=== PATIENT | male | born 1945 | race Caucasian/White ===

== ENCOUNTER 2018-09-05 18:11 | Observation (INO) ==
[2018-09-05] MEDS ORDERED: Pantoprazole Inj 40 MG Vial IV.PUSH ONE (19:18)
--- NOTE | 2018-09-05 19:25 | ED ---
HPI General Chief complaint: Nausea/Vomiting/Diarrhea Stated complaint: vomitting Time Seen by Provider: 09/05/18 19:06 Source: patient and family Mode of arrival: ambulatory Limitations: no limitations History of Present Illness HPI Narrative: The patient is a 72-year-old male with past medical history significant for COPD still smoking as well as throat cancer status post removal of all his teeth in 2002 presented with complaint of nausea and vomiting. Stated that he drove from [place] on Wednesday and since then he has been having low back pain in his lumbar spine and nausea and then today he had a total of 5 episodes of emesis of what was described as brownish material. No coffee- ground emesis. There was no bright red blood emesis or bilious emesis. Patient denies any abdominal pain. He lives in [place] and is visiting family for the holidays. No fever or chills no diarrhea. On arrival he is heart rate was 119 bpm and a respiratory rate of 25 breaths/min. Denies any respiratory distress no cough. No URI symptoms MD complaint: Reports nausea and vomiting; Denies diarrhea and abdominal pain Onset (ago): day(s) (3) Description of Vomiting: other (brown lquid) Description of Diarrhea: none Associated Abdominal Pain: No Severity: mild Associated symptoms: Reports loss of appetite (chronic), nausea/vomiting and weakness (generalized); Denies malaise, dysuria, shortness of breath, altered mental status, fatigue and palpitation Related Data Home Medications Medication Instructions Recorded Confirmed budesonide-formoterol [Symbicort] 2 puff INHALATION Q12H 09/05/18 09/05/18 Allergies Allergy/AdvReac Type Severity Reaction Status Date / Time No Known Allergies Allergy Verified 09/05/18 18:59 Review of Systems ROS: all other systems reviewed are negative [facility] Medical History Medical History COPD (chronic obstructive pulmonary disease) (Acute) History of lung cancer (Acute) History of mouth cancer (Acute) Peripheral vascular disease (Acute) Surgical History Surgical History No history of previous surgery (Acute) Family History Family History Other Coronary artery disease Social History Social History Second Hand Smoke Exposure: No Smoking Status: Never smoker How Often Do You Have a Drink Containing Alcohol: Never Recent Travel in [facility] within the Last 8 Weeks: Yes Recent Out of Country Travel within the Last 8 Weeks: No Immunization History Tetanus Immunization: Unsure Exam Narrative Exam Narrative: GENERAL: Alert and oriented in no distress. Cachectic with bitemporal wasting. SKIN: Focused skin assessment warm/dry. Dry skin turgor. HEAD: Atraumatic. Normocephalic. EYES: Pupils equal and round. No scleral icterus. No injection or drainage. ENT: No nasal bleeding or discharge. Mucous membranes pink and moist. NECK: Trachea midline. No JVD. CARDIOVASCULAR: Tachycardia with regular rhythm. No murmur appreciated. RESPIRATORY: No accessory muscle use. Clear to auscultation. Breath sounds equal bilaterally. GASTROINTESTINAL: Abdomen soft, non-tender, nondistended. Hepatic and splenic margins not palpable. No pulsatile abdominal mass noted. MUSCULOSKELETAL: No obvious deformities. No clubbing. No cyanosis. No edema. NEUROLOGICAL: Awake and alert. No obvious cranial nerve deficits. Motor grossly within normal limits. Normal speech. PSYCHIATRIC: Appropriate mood and affect; insight and judgment normal. GI Rectal Exam: normal sphincter tone, prostate normal, heme positive stool and hemorrhoids (external non bleeding non thrombosed) Course Initial Documented Vital Signs Temperature 97.3 F L 09/05/18 18:43 Pulse Rate 138 H 09/05/18 18:43 Respiratory Rate 27 H 09/05/18 18:43 Blood Pressure 106/72 09/05/18 18:43 Pulse Oximetry 98 09/05/18 18:43 Last Documented Vital Signs Temperature 97.3 F L 09/05/18 18:43 Pulse Rate 106 H 09/06/18 01:00 Respiratory Rate 19 09/06/18 01:00 Blood Pressure 114/66 09/06/18 01:00 Pulse Oximetry 98 09/06/18 01:00 Medical Decision Making [facility] Narrative Medical decision making narrative: Patient with leukocytosis of 12.9. No lactic acidosis was noted. Guaiac was positive. Presumptive upper GI bleed with hematemesis. Protonix given IV. Was also covered with Rocephin and Zithromax for bronchitis with his persistent cough and sputum production. He has been having posttussive emesis. AK I also noted with dehydration for which he was given fluids. CT abdomen and pelvis as well as chest revealed lung CA with lesions in liver and findings worisome for esophageal cancer Medical Screen Exam Complete: Yes Emergency Medical Condition: Yes Lab Data Lab results reviewed: Yes I reviewed the patient's lab results. Result diagrams: 09/05/18 19:32 09/05/18 19:32 Lab Results 09/05/18 09/05/18 09/05/18 Range/Units 19:32 19:32 19:32 WBC 12.9 H (4.0-11.0) th/mm3 RBC 4.69 (4.50-5.90) mil/mm3 Hgb 13.8 (13.0-17.0) gm/dL Hct 43.1 (39.0-51.0) % MCV 91.8 (80.0-100.0) fL MCH 29.3 (27.0-34.0) pg MCHC 32.0 (32.0-36.0) % RDW 15.0 (11.6-17.2) % Plt Count 446 (150-450) th/mm3 MPV 8.3 (7.0-11.0) fL Neut % (Auto) 83.6 H (16.0-70.0) % Lymph % (Auto) 9.9 (9.0-44.0) % Marshall % (Auto) 6.1 (0.0-8.0) % Eos % (Auto) 0.0 (0.0-4.0) % Baso % (Auto) 0.4 (0.0-2.0) % Neut # (Auto) 10.8 H (1.8-7.7) th/mm3 Lymph # (Auto) 1.3 (1.0-4.8) th/mm3 Marshall # (Auto) 0.8 (0.0-0.9) th/mm3 Eos # (Auto) 0.0 (0.0-0.4) th/mm3 Baso # (Auto) 0.0 (0.0-0.2) th/mm3 WBC Differential . Differential Comment Auto diff final PT 10.7 (9.8-11.6) sec INR 1.1 Ratio APTT 28.0 (23.4-31.7) sec Sodium 141 (136-145) meq/L Potassium 4.8 (3.5-5.1) meq/L Chloride 108 H (98-107) meq/L Carbon Dioxide 16.9 L (21.0-32.0) meq/L Anion Gap 16 H (5-15) meq/L BUN 40 H (7-18) mg/dL Creatinine 1.60 H (0.60-1.30) mg/dL Estimated GFR 43 L (>89) mL/min Random Glucose 142 H (74-106) mg/dL Lactic Acid (0.4-2.0) mmol/L Calcium 9.2 (8.5-10.1) mg/dL Calcium Adj for Albumin Magnesium 2.1 (1.5-2.5) mg/dL Total Bilirubin 0.4 (0.2-1.0) mg/dL AST 16 (15-37) U/L ALT 13 (12-78) U/L Alkaline Phosphatase 89 (45-117) U/L Total Creatine Kinase 54 (39-308) U/L Troponin I Less than 0.02 L (0.02-0.05) ng/mL Total Protein 8.3 H (6.4-8.2) g/dL Albumin 3.5 (3.4-5.0) g/dL Lipase 81 (73-393) U/L Urine Color (Yellw/Straw) Urine Clarity (Clear) Urine pH (5.0-8.5) Ur Specific [place] (1.002-1.035) Urine Protein (Neg-Trace) mg/dL Urine Glucose (UA) (Negative) mg/dL Urine Ketones (Negative) mg/dL Urine Occult Blood (Negative) Urine Nitrate (Negative) Urine Bilirubin (Negative) Urine Urobilinogen (Less than 2) mg/dL Ur Leukocyte Esterase (Negative) Urine RBC (0-3) /hpf Urine WBC (0-5) /hpf Hyaline Casts (0-3) /lpf Urine Mucus (Occasional) /lpf Micro UA Comment Ur Microscopic Review Urine Culture Comments 09/05/18 09/05/18 09/05/18 Range/Units 19:32 19:32 22:09 WBC (4.0-11.0) th/mm3 RBC (4.50-5.90) mil/mm3 Hgb (13.0-17.0) gm/dL Hct (39.0-51.0) % MCV (80.0-100.0) fL MCH (27.0-34.0) pg MCHC (32.0-36.0) % RDW (11.6-17.2) % Plt Count (150-450) th/mm3 MPV (7.0-11.0) fL Neut % (Auto) (16.0-70.0) % Lymph % (Auto) (9.0-44.0) % Marshall % (Auto) (0.0-8.0) % Eos % (Auto) (0.0-4.0) % Baso % (Auto) (0.0-2.0) % Neut # (Auto) (1.8-7.7) th/mm3 Lymph # (Auto) (1.0-4.8) th/mm3 Marshall # (Auto) (0.0-0.9) th/mm3 Eos # (Auto) (0.0-0.4) th/mm3 Baso # (Auto) (0.0-0.2) th/mm3 WBC Differential Differential Comment PT (9.8-11.6) sec INR Ratio APTT (23.4-31.7) sec Sodium Cancelled (136-145) meq/L Potassium Cancelled (3.5-5.1) meq/L Chloride Cancelled (98-107) meq/L Carbon Dioxide Cancelled (21.0-32.0) meq/L Anion Gap Cancelled (5-15) meq/L BUN Cancelled (7-18) mg/dL Creatinine Cancelled (0.60-1.30) mg/dL Estimated GFR Cancelled (>89) mL/min Random Glucose Cancelled (74-106) mg/dL Lactic Acid 1.9 (0.4-2.0) mmol/L Calcium Cancelled (8.5-10.1) mg/dL Calcium Adj for Albumin Cancelled Magnesium Cancelled (1.5-2.5) mg/dL Total Bilirubin Cancelled (0.2-1.0) mg/dL AST Cancelled (15-37) U/L ALT Cancelled (12-78) U/L Alkaline Phosphatase Cancelled (45-117) U/L Total Creatine Kinase (39-308) U/L Troponin I (0.02-0.05) ng/mL Total Protein Cancelled (6.4-8.2) g/dL Albumin Cancelled (3.4-5.0) g/dL Lipase (73-393) U/L Urine Color Yellow (Yellw/Straw) Urine Clarity Clear (Clear) Urine pH 5.0 (5.0-8.5) Ur Specific [place] 1.030 (1.002-1.035) Urine Protein Negative (Neg-Trace) mg/dL Urine Glucose (UA) Negative (Negative) mg/dL Urine Ketones 80 or greater H (Negative) mg/dL Urine Occult Blood Small H (Negative) Urine Nitrate Negative (Negative) Urine Bilirubin Negative (Negative) Urine Urobilinogen Less than 2 (Less than 2) mg/dL Ur Leukocyte Esterase Negative (Negative) Urine RBC Less than 1 (0-3) /hpf Urine WBC 1 (0-5) /hpf Hyaline Casts 14 (0-3) /lpf Urine Mucus Few H (Occasional) /lpf Micro UA Comment Culture not ind Ur Microscopic Review Not Reportable Urine Culture Comments Culture not ind Imaging Data Radiologist's impression: Abdomen/Pelvis CT 09/05/18 19:19 CONCLUSION: 1. Nodule in the right lower lobe measuring 1.8 cm. 2. Extensive wall thickening of the distal esophagus with small paraesophageal lymph nodes. Neoplastic etiology is suspected and endoscopy/biopsy recommended. 3. Nonspecific subcentimeter hepatic low-density, 4. Nonspecific rectal wall thickening. 5. Gallbladder distention urinary bladder. Chest X-Ray 09/05/18 19:19 CONCLUSION: Hyperinflation without infiltrate. Chest CTA 09/05/18 19:46 CONCLUSION: 1. Moderate emphysematous changes with 2 lung nodules, largest right lung base at 2.1 cm undoubtably carcinoma. Smaller nodule upper lobe is nonspecific. 2. No mediastinal adenopathy 3. No central pulmonary emboli. Gallbladder Ultrasound 09/05/18 22:16 CONCLUSION: 1. Unremarkable right upper quadrant ultrasound. ECG Data Attestation: I personally reviewed and interpreted this ECG as follows: Interpretation: Sinus tachycardia 118 bpm NM interval 166 ms. QTc 380 ms. Normal axis. Right atrial enlargement. Left atrial enlargement. Nonspecific ST-T wave abnormalities. No signs of acute ischemia. Discharge Plan Discharge Disposition Patient Disposition: 30 Still Patient Discharge Condition Condition: Good Discharge Details Diagnosis: Hematemesis, Lung cancer, CARISA (acute kidney injury) Physicians Team ED Provider: Dash Gallegos Primary Care Provider: Primary Care Physici,Brittaney Attending Provider: Alexus Sifuentes Discharge Interventions Interventions: Vital Signs Last Done: 09/06/18 01:00 Status ED Status: Admitted Observation Patient
[2018-09-05] MEDS ORDERED: Sod Chloride 0.9% Inj 800 ML IV.SIG SCH (19:30)
[2018-09-05] MEDS ORDERED: Sod Chloride 0.9% Inj 1,000 ML IV.SIG SCH (19:30)
[2018-09-05 19:52] LABS: Baso % (Auto) 0.4 % (0.0-2.0); Hematocrit 43.1 % (39.0-51.0); Hemoglobin 13.8 gm/dL (13.0-17.0); Lymph # (Auto) 1.3 th/mm3 (1.0-4.8); Lymph % (Auto) 9.9 % (9.0-44.0); Mean Corpuscular Hemoglobin 29.3 pg (27.0-34.0); Mean Corpuscular Volume 91.8 fL (80.0-100.0); Mean Platelet Volume 8.3 fL (7.0-11.0); Mono # (Auto) 0.8 th/mm3 (0.0-0.9); Mono % (Auto) 6.1 % (0.0-8.0); Neut # (Auto) 10.8 th/mm3 (1.8-7.7); Neut % (Auto) 83.6 % (16.0-70.0); Platelet Count 446 th/mm3 (150-450); Red Blood Count 4.69 mil/mm3 (4.50-5.90); White Blood Count 12.9 th/mm3 (4.0-11.0)
--- NOTE | 2018-09-05 19:56 | XR ---
EXAM DATE: 09/05/2018 7:43 PM EST AGE/SEX: 72 years / Male INDICATIONS: Cough. CLINICAL DATA: This is the patient's initial encounter. Patient reports that signs and symptoms have been present for 1 day and indicates a pain score of 0/10. MEDICAL/SURGICAL HISTORY: Non-responsive. Non-responsive. COMPARISON: No prior exams available for comparison. FINDINGS: A single AP view of the chest demonstrates the lungs to be hyperinflated without evidence of mass, in filtrate or effusion. The cardiomediastinal contours are unremarkable. Old left-sided rib fractures. CONCLUSION: Hyperinflation without infiltrate. Electronically signed by: Troy Watters MD 09/05/2018 7:55 PM EST
[2018-09-05 20:08] LABS: INR 1.1 Ratio
[2018-09-05 20:13] LABS: Prothrombin Time 10.7 sec (9.8-11.6)
[2018-09-05 20:24] LABS: Albumin 3.5 g/dL (3.4-5.0); Anion Gap 16 meq/L (5-15); Aspartate Aminotransferase 16 U/L (15-37); Blood Urea Nitrogen 40 mg/dL (7-18); Calcium 9.2 mg/dL (8.5-10.1); Carbon Dioxide 16.9 meq/L (21.0-32.0); Chloride 108 meq/L (98-107); Glomerular Filtration Rate 43 mL/min (>89); Glucose,Random 142 mg/dL (74-106); Lipase 81 U/L (73-393); Magnesium 2.1 mg/dL (1.5-2.5); Potassium 4.8 meq/L (3.5-5.1); Sodium 141 meq/L (136-145)
[2018-09-05 20:30] LABS: Alanine Aminotransferase 13 U/L (12-78); Alkaline Phosphatase 89 U/L (45-117); Total Protein 8.3 g/dL (6.4-8.2)
[2018-09-05 20:32] LABS: Creatine Kinase 54 U/L (39-308)
--- NOTE | 2018-09-05 21:31 | CT ---
EXAM DATE: 09/05/2018 9:19 PM EST AGE/SEX: 72 years / Male INDICATIONS: Shortness of breath CLINICAL DATA: This is the patient's initial encounter. Patient reports that signs and symptoms have been present for 1 day and indicates a pain score of 0/10. MEDICAL/SURGICAL HISTORY: Chronic obstructive pulmonary disease. Carcinoma, lung. None. RADIATION DOSE: 3.9 CTDI (mGy) COMPARISON: No prior exams available for comparison. TECHNIQUE: Volumetric scanning was performed using a multi-row detector CT scanner during bolus infu princess of 76 ml Omnipaque 350 (iohexol) nonionic water-soluble contrast as a cumulative dose for multi ple exams. The data was post processed with a variety of visualization algorithms including full volu me maximum intensity projection and sliding thin slab reformation. Using automated exposure control a nd adjustment of the mA and/or kV according to patient size, radiation dose was kept as low as reason ably achievable to obtain optimal diagnostic quality images. DICOM format image data is available el ectronically for review and comparison. FINDINGS: Lungs: Moderate emphysematous changes with small 8 mm spiculated nodule right upper lobe. 2.1 cm spic ulated nodule right lung base consistent with a primary neoplasm of the lung. Mediastinum: No axillary or mediastinal adenopathy. No central pulmonary emboli. Upper abdominal contents unremarkable CONCLUSION: 1. Moderate emphysematous changes with 2 lung nodules, largest right lung base at 2.1 cm undoubtably carcinoma. Smaller nodule upper lobe is nonspecific. 2. No mediastinal adenopathy 3. No central pulmonary emboli. Electronically signed by: Lester Potter MD 09/05/2018 9:30 PM EST
--- NOTE | 2018-09-05 21:36 | CT ---
EXAM DATE: 09/05/2018 9:25 PM EST AGE/SEX: 72 years / Male INDICATIONS: Diffuse abdomen pain today with nausea and vomiting. CLINICAL DATA: This is the patient's initial encounter. Patient reports that signs and symptoms have been present for 1 day and indicates a pain score of 5/10. MEDICAL/SURGICAL HISTORY: Carcinoma, lung. Chronic obstructive pulmonary disease. None. ORAL CONTRAST: No oral contrast ingested. RADIATION DOSE: 6.93 CTDI (mGy) COMPARISON: No prior exams available for comparison. TECHNIQUE: Multiple contiguous axial images were obtained through the abdomen and pelvis following b olus infusion of 76 ml Omnipaque 350 (iohexol) nonionic water-soluble contrast as a cumulative dose for multiple exams. No oral contrast ingested. Using automated exposure control and adjustment of t he mA and/or kV according to patient size, radiation dose was kept as low as reasonably achievable to obtain optimal diagnostic quality images. DICOM format image data is available electronically for r eview and comparison. FINDINGS: Lower Lungs: Nodule in the right lower lobe measuring 1.8 x 1.6 cm. Extensive wall thickening of the distal esophagus. Small paraesophageal lymph nodes. Liver: The liver has a homogeneous density without space-occupying lesion. There is no dilation of th e biliary tree. Nonspecific low-density in the right central lobe measures 5 to 6 mm Spleen: Homogeneous density without enlargement. Pancreas: Unremarkable without mass or calcification. Kidneys: Normal in size and shape. No evidence of mass or hydronephrosis. Adrenal Glands: Unremarkable. Aorta: Atherosclerotic changes without aneurysmal dilation. Bowel/Mesentery: There is some rectal wall thickening. Abdominal Wall: Intact. Retroperitoneum: No evidence of adenopathy in the retrocrural, para-aortic, or deep pelvic regions. Bladder: Contours are smooth. Mildly distended. Reproductive Organs: No abnormal masses or calcifications seen. Inguinal: The inguinal region is unremarkable without evidence of adenopathy. Bony Structures: Degenerative changes are seen. Mild loss of height of T11 and T12 and moderate loss of height of L1. CONCLUSION: 1. Nodule in the right lower lobe measuring 1.8 cm. 2. Extensive wall thickening of the distal esophagus with small paraesophageal lymph nodes. Neoplast ic etiology is suspected and endoscopy/biopsy recommended. 3. Nonspecific subcentimeter hepatic low-density, 4. Nonspecific rectal wall thickening. 5. Gallbladder distention urinary bladder. Electronically signed by: Troy Watters MD 09/05/2018 9:35 PM EST
[2018-09-05 22:26] LABS: Bilirubin,Urine Negative (Negative); Clarity,Urine Clear (Clear); Color,Urine Yellow (Yellw/Straw); Glucose,Urine (UA) Negative (Negative); Hyaline Casts,Urine 14 /lpf (0-3); Leukocyte Esterase,Urine Negative (Negative); Mucus,Urine Few /lpf (Occasional); Nitrite,Urine Negative (Negative)
[2018-09-05] MEDS ORDERED: Azithromycin Inj 500 MG in Sodium Chlor 0.9% Inj 250 ML IV.SIG ONE (23:04)
--- NOTE | 2018-09-05 23:26 | US ---
EXAM DATE: 09/05/2018 11:09 PM EST AGE/SEX: 72 years / Male INDICATIONS: Right upper quadrant pain. CLINICAL DATA: This is the patient's initial encounter. Patient reports that signs and symptoms have been present for 1 day and indicates a pain score of 4/10. MEDICAL/SURGICAL HISTORY: Chronic obstructive pulmonary disease. None. COMPARISON: No prior exams available for comparison. MEASUREMENTS: Liver:__ 13.2 cm. Common Bile Duct:__ 4mm. FINDINGS: Liver: Normal echotexture without focal lesion or ductal dilatation. Portal Vein: Hepatopedal flow seen in portal vein. Common Duct: No intraluminal mass or stone visualized. Gallbladder: Demonstrates no wall thickening or pericholecystic fluid. No stones visualized. Pancreas: Not well visualized. Right Kidney: Normal echotexture and cortical thickness. No mass or hydronephrosis. Other: None. CONCLUSION: 1. Unremarkable right upper quadrant ultrasound. Electronically signed by: Alfredo Aviles MD 09/05/2018 11:25 PM EST
[2018-09-06] MEDS ORDERED: Acetaminophen 325 MG Tablet PO PRN (03:19)
[2018-09-06] MEDS ORDERED: Bisacodyl 10 MG Supp RECTAL PRN (03:19)
--- NOTE | 2018-09-06 03:35 | P.HP ---
History of Present Illness Service: [facility] Primary Care Physician: No Primary Care Physician History of Present Illness: 72-year-old male with a past medical history significant for "mouth cancer", COPD and peripheral vascular disease presents to the emergency department for evaluation of nausea/vomiting and anorexia times 2 days. The patient reports he did have dark emesis but he also drank coffee prior to throwing up so he is unsure if there was blood in his M just was throwing up his coffee. The patient is visiting from [place]. 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 He states at that time he lost a significant amount of weight but his weight has been stable since 2004. He also reports being diagnosed with lung cancer in 2004 however states that he did not seek treatment for this because he felt it was a misdiagnosis. He reports that he currently has a utility aide and a doctor for his leg. He does not have a primary care physician. He states his last EGD was done in 2011 and he believes that it was normal. He was Hemoccult positive in the emergency department. CT abdomen/ pelvis concerning for esophageal wall thickening with suspected neoplastic etiology. CT of the chest showed 2 lung nodules with the largest at the right lung base "undoubtably carcinoma." The patient denies any chest pain or shortness of breath. No diarrhea. No fever/chills. No focal neurologic deficits. Inpatient Certification: I certify that the inpatient services were ordered in accordance with Medicare regulations governing the order. This includes certification that hospital inpatient services are reasonable and necessary and in the case of services not specified as inpatient-only under 42 CFR 419.22(n), that they are appropriately provided as inpatient services in accordance to with the 2-midnight benchmark under 43 CFR 412.3(e) Review of Systems All other systems reviewed negative except as stated in HPI PMFSH - History History Provided By: Patient - Medical History Medical History: Medical History (Last Updated 09/06/18 @ 03:26 by Alexus Sifuentes MD) COPD (chronic obstructive pulmonary disease) History of lung cancer History of mouth cancer Peripheral vascular disease - Surgical History Surgical History: Surgical History (Last Updated 09/06/18 @ 03:26 by Alexus Sifuentes MD) No history of previous surgery - Family History Family History: Family History (Last Updated 09/06/18 @ 03:26 by Alexus Sifuentes MD) Other Coronary artery disease - Tobacco History Second Hand Smoke Exposure: No Smoking Status: Never smoker - Alcohol History How Often Do You Have a Drink Containing Alcohol: Never - Travel History Recent Travel in the [place] Within the Last 8 Weeks: Yes Recent Travel Out of the Country Within the Last 8 Weeks: No - Immunization History Tetanus Immunization: Unsure Medications and Allergies Active Medications: Active Medications Acetaminophen (Tylenol) 650 mg PO Q4H PRN PRN Reason: Temp > 100.4 Albuterol (Duoneb Neb (Prn)) 1 ampul NEB Q4HR NEB PRN PRN Reason: SOB/Wheezing Sodium Chloride (Ns Inj) 1,000 mls @ 0 mls/hr IV.SIG .Q0M TIFFANIE Last Infusion: 09/05/18 21:02 Dose: Infused Sodium Chloride (Ns Inj) 800 mls @ 0 mls/hr IV.SIG .Q0M TIFFANIE Last Infusion: 09/05/18 21:02 Dose: Infused Allergies Allergy/AdvReac Type Severity Reaction Status Date / Time No Known Allergies Allergy Verified 09/05/18 18:59 Home Medications Medication Instructions Recorded Confirmed Type budesonide-formoterol [Symbicort] 2 puff INHALATION Q12H 09/05/18 09/05/18 History Exam Vital signs: Vital Signs 09/05/18 18:43 09/05/18 18:47 09/05/18 19:19 Temperature 97.3 F L Pulse Rate 138 H 119 H 119 H Respiratory Rate 27 H 25 H Blood Pressure 106/72 Pulse Oximetry 98 97 97 09/05/18 22:20 09/06/18 01:00 Temperature Pulse Rate 107 H 106 H Respiratory Rate 21 19 Blood Pressure 129/85 114/66 Pulse Oximetry 99 98 Intake & Output 09/05/18 09/05/18 09/06/18 06:59 18:59 06:59 Intake Total 2149 Balance 2149 Weight 43.091 kg Intake: IV 2149 Azithromycin Inj 500 MG In NS 250 / 250 Inj 250 ML @ 250 mls/hr IV.SIG ONCE ONE Rx#:[id number] NS Inj 800 ML @ Wide Open IV. 1800 / 1800 SIG .Q0M TIFFANIE Rx#:[id number] Rocephin Inj 1,000 MG In NS Inj 100 / 100 100 ML @ 200 mls/hr IV.SIG ONCE ONE Rx#:[id number] Narrative: Gen.: Cachectic appearing male in no acute distress Head: Normocephalic. Atraumatic. EENT: Pupils equal round and reactive to light. Nose without drainage. Airway intact. Throat without injection. Cardiovascular: Regular rate and rhythm. No murmurs, rubs or gallops. Respiratory: Lungs clear to auscultation bilaterally. No wheezes or rhonchi. Abdomen: Soft, nontender, nondistended. No peritoneal signs. Musculoskeletal: No gross deformities. No edema. Skin: No obvious rashes or erythema. Neuro: Sensory and motor grossly intact. Cranial nerves II through XII grossly intact. Results - Labs CBC & Chem 7: 09/05/18 19:32 09/05/18 19:32 Labs: Laboratory Results - last 24 hr 09/05/18 09/05/18 09/05/18 19:32 19:32 19:32 WBC 12.9 H RBC 4.69 Hgb 13.8 Hct 43.1 MCV 91.8 MCH 29.3 MCHC 32.0 RDW 15.0 Plt Count 446 MPV 8.3 Neut % (Auto) 83.6 H Lymph % (Auto) 9.9 [place] % (Auto) 6.1 Eos % (Auto) 0.0 Baso % (Auto) 0.4 Neut # (Auto) 10.8 H Lymph # (Auto) 1.3 [place] # (Auto) 0.8 Eos # (Auto) 0.0 Baso # (Auto) 0.0 WBC Differential . Differential Comment Auto diff final PT 10.7 INR 1.1 APTT 28.0 Sodium 141 Potassium 4.8 Chloride 108 H Carbon Dioxide 16.9 L Anion Gap 16 H BUN 40 H Creatinine 1.60 H Estimated GFR 43 L Random Glucose 142 H Lactic Acid Calcium 9.2 Calcium Adj for Albumin Magnesium 2.1 Total Bilirubin 0.4 AST 16 ALT 13 Alkaline Phosphatase 89 Total Creatine Kinase 54 Troponin I Less than 0.02 L Total Protein 8.3 H Albumin 3.5 Lipase 81 Urine Color Urine Clarity Urine pH Ur Specific [place] Urine Protein Urine Glucose (UA) Urine Ketones Urine Occult Blood Urine Nitrate Urine Bilirubin Urine Urobilinogen Ur Leukocyte Esterase Urine RBC Urine WBC Hyaline Casts Urine Mucus Micro UA Comment Ur Microscopic Review Urine Culture Comments 09/05/18 09/05/18 09/05/18 19:32 19:32 22:09 WBC RBC Hgb Hct MCV MCH MCHC RDW Plt Count MPV Neut % (Auto) Lymph % (Auto) [place] % (Auto) Eos % (Auto) Baso % (Auto) Neut # (Auto) Lymph # (Auto) [place] # (Auto) Eos # (Auto) Baso # (Auto) WBC Differential Differential Comment PT INR APTT Sodium Cancelled Potassium Cancelled Chloride Cancelled Carbon Dioxide Cancelled Anion Gap Cancelled BUN Cancelled Creatinine Cancelled Estimated GFR Cancelled Random Glucose Cancelled Lactic Acid 1.9 Calcium Cancelled Calcium Adj for Albumin Cancelled Magnesium Cancelled Total Bilirubin Cancelled AST Cancelled ALT Cancelled Alkaline Phosphatase Cancelled Total Creatine Kinase Troponin I Total Protein Cancelled Albumin Cancelled Lipase Urine Color Yellow Urine Clarity Clear Urine pH 5.0 Ur Specific [place] 1.030 Urine Protein Negative Urine Glucose (UA) Negative Urine Ketones 80 or greater H Urine Occult Blood Small H Urine Nitrate Negative Urine Bilirubin Negative Urine Urobilinogen Less than 2 Ur Leukocyte Esterase Negative Urine RBC Less than 1 Urine WBC 1 Hyaline Casts 14 Urine Mucus Few H Micro UA Comment Culture not ind Ur Microscopic Review Not Reportable Urine Culture Comments Culture not ind - Imaging Impressions Abdomen/Pelvis CT 09/05/18 19:19 CONCLUSION: 1. Nodule in the right lower lobe measuring 1.8 cm. 2. Extensive wall thickening of the distal esophagus with small paraesophageal lymph nodes. Neoplastic etiology is suspected and endoscopy/biopsy recommended. 3. Nonspecific subcentimeter hepatic low-density, 4. Nonspecific rectal wall thickening. 5. Gallbladder distention urinary bladder. Chest X-Ray 09/05/18 19:19 CONCLUSION: Hyperinflation without infiltrate. Chest CTA 09/05/18 19:46 CONCLUSION: 1. Moderate emphysematous changes with 2 lung nodules, largest right lung base at 2.1 cm undoubtably carcinoma. Smaller nodule upper lobe is nonspecific. 2. No mediastinal adenopathy 3. No central pulmonary emboli. Gallbladder Ultrasound 09/05/18 22:16 CONCLUSION: 1. Unremarkable right upper quadrant ultrasound. Caprini VTE Risk Assessment Caprini VTE Risk Assessment: Moderate/High Risk (score >= 2) Caprini Risk Assessment Model: Point Value = 1 Point Value = 2 Point Value = 3 Point Value = 5 Age 41-60 Minor surgery BMI > 25 kg/m2 Swollen legs Varicose veins or History of unexplained or recurrent spontaneous Oral contraceptives or hormone replacement Sepsis (< 1 month) Serious lung disease, including pneumonia (< 1 month) Abnormal pulmonary function Acute myocardial infarction Congestive heart failure (< 1 month) History of inflammatory bowel disease Medical patient at bed rest Age 61-74 Arthroscopic surgery Major open surgery (> 45 min) Laparoscopic surgery (> 45 min) Malignancy Confined to bed (> 72 hours) Immobilizing plaster cast Central venous access Age >= 75 History of VTE Family history of VTE Factor V Leiden Prothrombin [id number] Lupus anticoagulant Anticardiolipin antibodies Elevated serum homocysteine Heparin-induced thrombocytopenia Other congenital or acquired thrombophilia Stroke (< 1 month) Elective arthroplasty Hip, pelvis, or leg fracture Acute spinal cord injury (< 1 month) Prophylaxis Regimen: Total Risk Factor Score Risk Level Prophylaxis Regimen 0-1 Low Early ambulation 2 Moderate Order ONE of the following: *Sequential Compression Device (SCD) *Heparin 5000 units SQ BID 3-4 Higher Order ONE of the following medications: *Heparin 5000 units SQ TID *Enoxaparin/Lovenox 40 mg SQ daily (WT < 150 kg, CrCl > 30 mL/min) *Enoxaparin/Lovenox 30 mg SQ daily (WT < 150 kg, CrCl > 10-29 mL/min) *Enoxaparin/Lovenox 30 mg SQ BID (WT < 150 kg, CrCl > 30 mL/min) AND/OR *Sequential Compression Device (SCD) 5 or more Highest Order ONE of the following medications: *Heparin 5000 units SQ TID (Preferred with Epidurals) *Enoxaparin/Lovenox 40 mg SQ daily (WT < 150 kg, CrCl > 30 mL/min) *Enoxaparin/Lovenox 30 mg SQ daily (WT < 150 kg, CrCl > 10-29 mL/min) *Enoxaparin/Lovenox 30 mg SQ BID (WT < 150 kg, CrCl > 30 mL/min) AND *Sequential Compression Device (SCD) Assessment and Plan - Plan Assessment/plan: 1. Nausea/vomiting/weight loss/? Esophageal neoplasm Patient Hemoccult positive in the ED Nausea/vomiting resolved CT of the abdomen/pelvis significant for extensive wall thickening of the distal esophagus with small paraesophageal lymph nodes. Neoplastic etiology is suspected and endoscopic/biopsy is recommended. Gastroenterology consulted, appreciate assistance IV Protonix 2. ? History of lung cancer/lung nodules Chest CTA significant for 2 lung nodules, largest in the right lung base at 2.1 cm undoubtably carcinoma. Patient reports a history of lung cancer in 2004 however states he felt it was a misdiagnosis and did not have it treated Patient will need oncologic workup as an outpatient 3. COPD Duo nebs Continue home Symbicort 4. Peripheral vascular disease Patient reports he is followed as an outpatient for an occlusion in 1 of the vessels of his leg He states he was prescribed medication but he has not been on it in a long time Lower extremity ultrasound pending 5. Acute kidney injury BUN/creatinine 40/1.60 Likely component of dehydration given patient's anorexia and emesis IV fluid hydration Monitor renal function FEN N.p.o. Electrolytes: Monitor and replete as needed NS at 70 cc/hour Holding pharmacologic anticoagulation for possible GI bleed and possible EGD
[2018-09-06] MEDS: Senna/Docusate Sodium 8.6/50 MG Tablet PO SCH ×2 (08:03→21:34)
[2018-09-06] MEDS: Budesonide-Formoterol 80/4.5 MCG 6.9 GM Inhaler INH SCH ×2 (08:15→21:34)
[2018-09-06] MEDS: Pantoprazole Inj 40 MG Vial IV.PUSH SCH ×2 (08:15→21:34)
--- NOTE | 2018-09-06 08:55 | US ---
EXAM DATE: 09/06/2018 8:52 AM EST AGE/SEX: 72 years / Male INDICATIONS: Thrombosis. CLINICAL DATA: This is the patient's initial encounter. Patient reports that signs and symptoms have been present for 1 day and indicates a pain score of 0/10. MEDICAL/SURGICAL HISTORY: . Chronic obstructive pulmonary disease. None. COMPARISON: No prior exams available for comparison. TECHNIQUE: Venous ultrasound of both lower extremities was performed from the inguinal ligament to t he proximal calf. Real-time, color Doppler and spectral tracing, compression and augmentation techni ques were used. FINDINGS: Right Leg: Normal compression of the deep venous system from the inguinal region to the proximal myriam f. No echogenic clot is seen. Normal response of the venous system to augmentation and respiration. Left Leg: Normal compression of the deep venous system from the inguinal region to the proximal calf . No echogenic clot is seen. Normal response of the venous system to augmentation and respiration. Other: None. CONCLUSION: The study is negative for bilateral lower extremity deep venous thrombosis. Electronically signed by: Eddie Thomson MD 09/06/2018 8:53 AM EST
[2018-09-06] MEDS: Sod Chloride 0.9% Inj 1,000 ML IV.CONT SCH ×2 (10:07→19:15)
[2018-09-06 12:56] LABS: Calcium 8.8 mg/dL (8.5-10.1); Carbon Dioxide 17.8 meq/L (21.0-32.0); Potassium 3.8 meq/L (3.5-5.1)
--- NOTE | 2018-09-06 14:36 | P.PN ---
Subjective Interval history: seen with family at bedside patient up on chair- wanting to eat here visiting from [place] further history- COPD not 02 dependent on spiriva and Ventolin MDIs has been havign difficulty swallowing solids for "years" toleating only liquids hisotry of tongue cancer S/p radiation therapy in 2004 for 7 weeks also states history of Lung cancer - but he feels it was a misdiagnosis Physical Exam Vital signs: Vital Signs 09/05/18 18:43 09/05/18 18:47 09/05/18 19:19 Temperature 97.3 F L Pulse Rate 138 H 119 H 119 H Respiratory Rate 27 H 25 H Blood Pressure 106/72 Pulse Oximetry 98 97 97 09/05/18 22:20 09/06/18 01:00 09/06/18 07:40 Temperature Pulse Rate 107 H 106 H 102 H Respiratory Rate 21 19 18 Blood Pressure 129/85 114/66 118/64 Pulse Oximetry 99 98 97 09/06/18 10:35 09/06/18 12:30 09/06/18 13:40 Temperature 97.5 F L 96.6 F L Pulse Rate 92 H 85 89 Respiratory Rate 18 22 Blood Pressure 113/55 L 115/59 L Pulse Oximetry 99 100 Intake & Output 09/05/18 09/06/18 09/06/18 18:59 06:59 18:59 Intake Total 2149 Balance 2149 Weight 43.091 kg 43.091 kg Intake: IV 2149 Azithromycin Inj 500 MG In NS 250 / 250 Inj 250 ML @ 250 mls/hr IV.SIG ONCE ONE Rx#:[id number] NS Inj 800 ML @ Wide Open IV. 1800 / 1800 SIG .Q0M [facility] Rx#:[id number] Rocephin Inj 1,000 MG In NS Inj 100 / 100 100 ML @ 200 mls/hr IV.SIG ONCE ONE Rx#:[id number] Other: Date of Last Bowel Movement 09/02/18 Weight On Admission 43.091 kg Narrative: Gen.: Cachectic appearing male in no acute distress, a x ox 3 Head: Normocephalic. Atraumatic. EENT: Pupils equal round and reactive to light. Nose without drainage. Airway intact. Throat without injection. Cardiovascular: Regular rate and rhythm. Respiratory: Lungs clear to auscultation bilaterally. No wheezes or rhonchi. Abdomen: Soft, nontender, nondistended. No peritoneal signs. Musculoskeletal: No gross deformities. No edema. Skin: No obvious rashes or erythema. Neuro: Sensory and motor grossly intact. Results - Labs CBC & Chem 7: 09/05/18 19:32 09/06/18 11:49 Laboratory Results - last 24 hr 09/05/18 09/05/18 09/05/18 19:32 19:32 19:32 WBC 12.9 H RBC 4.69 Hgb 13.8 Hct 43.1 MCV 91.8 MCH 29.3 MCHC 32.0 RDW 15.0 Plt Count 446 MPV 8.3 Neut % (Auto) 83.6 H Lymph % (Auto) 9.9 [place] % (Auto) 6.1 Eos % (Auto) 0.0 Baso % (Auto) 0.4 Neut # (Auto) 10.8 H Lymph # (Auto) 1.3 [place] # (Auto) 0.8 Eos # (Auto) 0.0 Baso # (Auto) 0.0 WBC Differential . Differential Comment Auto diff final PT 10.7 INR 1.1 APTT 28.0 Sodium 141 Potassium 4.8 Chloride 108 H Carbon Dioxide 16.9 L Anion Gap 16 H BUN 40 H Creatinine 1.60 H Estimated GFR 43 L Random Glucose 142 H Lactic Acid Calcium 9.2 Calcium Adj for Albumin Magnesium 2.1 Total Bilirubin 0.4 AST 16 ALT 13 Alkaline Phosphatase 89 Total Creatine Kinase 54 Troponin I Less than 0.02 L Total Protein 8.3 H Albumin 3.5 Lipase 81 Urine Color Urine Clarity Urine pH Ur Specific [place] Urine Protein Urine Glucose (UA) Urine Ketones Urine Occult Blood Urine Nitrate Urine Bilirubin Urine Urobilinogen Ur Leukocyte Esterase Urine RBC Urine WBC Hyaline Casts Urine Mucus Micro UA Comment Ur Microscopic Review Urine Culture Comments 09/05/18 09/05/18 09/05/18 19:32 19:32 22:09 WBC RBC Hgb Hct MCV MCH MCHC RDW Plt Count MPV Neut % (Auto) Lymph % (Auto) [place] % (Auto) Eos % (Auto) Baso % (Auto) Neut # (Auto) Lymph # (Auto) [place] # (Auto) Eos # (Auto) Baso # (Auto) WBC Differential Differential Comment PT INR APTT Sodium Cancelled Potassium Cancelled Chloride Cancelled Carbon Dioxide Cancelled Anion Gap Cancelled BUN Cancelled Creatinine Cancelled Estimated GFR Cancelled Random Glucose Cancelled Lactic Acid 1.9 Calcium Cancelled Calcium Adj for Albumin Cancelled Magnesium Cancelled Total Bilirubin Cancelled AST Cancelled ALT Cancelled Alkaline Phosphatase Cancelled Total Creatine Kinase Troponin I Total Protein Cancelled Albumin Cancelled Lipase Urine Color Yellow Urine Clarity Clear Urine pH 5.0 Ur Specific [place] 1.030 Urine Protein Negative Urine Glucose (UA) Negative Urine Ketones 80 or greater H Urine Occult Blood Small H Urine Nitrate Negative Urine Bilirubin Negative Urine Urobilinogen Less than 2 Ur Leukocyte Esterase Negative Urine RBC Less than 1 Urine WBC 1 Hyaline Casts 14 Urine Mucus Few H Micro UA Comment Culture not ind Ur Microscopic Review Not Reportable Urine Culture Comments Culture not ind 09/06/18 11:49 WBC RBC Hgb Hct MCV MCH MCHC RDW Plt Count MPV Neut % (Auto) Lymph % (Auto) [place] % (Auto) Eos % (Auto) Baso % (Auto) Neut # (Auto) Lymph # (Auto) [place] # (Auto) Eos # (Auto) Baso # (Auto) WBC Differential Differential Comment PT INR APTT Sodium 143 Potassium 3.8 D Chloride 114 H Carbon Dioxide 17.8 L Anion Gap 11 BUN 24 H Creatinine 1.05 Estimated GFR 70 L Random Glucose 80 Lactic Acid Calcium 8.8 Calcium Adj for Albumin Magnesium Total Bilirubin AST ALT Alkaline Phosphatase Total Creatine Kinase Troponin I Total Protein Albumin Lipase Urine Color Urine Clarity Urine pH Ur Specific [place] Urine Protein Urine Glucose (UA) Urine Ketones Urine Occult Blood Urine Nitrate Urine Bilirubin Urine Urobilinogen Ur Leukocyte Esterase Urine RBC Urine WBC Hyaline Casts Urine Mucus Micro UA Comment Ur Microscopic Review Urine Culture Comments Microbiology 09/05/18 19:36 Blood - Peripheral Aerobic Blood Culture - Preliminary No growth in 1 day 09/05/18 19:36 Blood - Peripheral Anaerobic Blood Culture - Preliminary No growth in 1 day 09/05/18 19:32 Blood - Peripheral Aerobic Blood Culture - Preliminary No growth in 1 day 09/05/18 19:32 Blood - Peripheral Anaerobic Blood Culture - Preliminary No growth in 1 day - Imaging Impressions Abdomen/Pelvis CT 09/05/18 19:19 CONCLUSION: 1. Nodule in the right lower lobe measuring 1.8 cm. 2. Extensive wall thickening of the distal esophagus with small paraesophageal lymph nodes. Neoplastic etiology is suspected and endoscopy/biopsy recommended. 3. Nonspecific subcentimeter hepatic low-density, 4. Nonspecific rectal wall thickening. 5. Gallbladder distention urinary bladder. Chest X-Ray 09/05/18 19:19 CONCLUSION: Hyperinflation without infiltrate. Chest CTA 09/05/18 19:46 CONCLUSION: 1. Moderate emphysematous changes with 2 lung nodules, largest right lung base at 2.1 cm undoubtably carcinoma. Smaller nodule upper lobe is nonspecific. 2. No mediastinal adenopathy 3. No central pulmonary emboli. Gallbladder Ultrasound 09/05/18 22:16 CONCLUSION: 1. Unremarkable right upper quadrant ultrasound. Venous Doppler Study 09/06/18 00:00 CONCLUSION: The study is negative for bilateral lower extremity deep venous thrombosis. Assessment and Plan - Plan 72 years old History of oral/tongue cancer s/p radiation treatment Nausea/vomiting/weight loss/? Esophageal neoplasm r/o stricture Dysphagia By history - difficulty eating with solids- just taking clears at home for years Patient Hemoccult positive in the ED Nausea/vomiting resolved- now wanting to eat CT of the abdomen/pelvis significant for extensive wall thickening of the distal esophagus with small paraesophageal lymph nodes. Neoplastic etiology is suspected and endoscopic/biopsy is recommended. Gastroenterology consulted - for EGD- biopsy/dilation if + stricture IV Protonix start clear liquids with ensure clear supplements. cosnult dietitian Lung nodules suspicious for malignancy COPD, not 02 dependent Duo nebs Continue home Symbicort/spiriva and Ventolin inh History of Oral/tongue cancer s/p radiation therapy in 2004 Chest CTA significant for 2 lung nodules, largest in the right lung base at 2.1 cm undoubtably carcinoma. Patient reports a history of lung cancer in 2004 however states he felt it was a misdiagnosis and did not have it treated Patient will need oncologic workup as an outpatient- d/w family - when he goes back to [place] to have PCP referral him to pulmonary and oncology Acute kidney injury- secondary to poor po - Improved -start clear liquid diet - speech therapist consulted for swallowing eval BUN/creatinine 40/1.60-on admission now 20/1.05 - continue IVF Likely component of dehydration given patient's anorexia Monitor renal function dietitian consult for recommendation History of Peripheral vascular disease Patient reports he is followed as an outpatient for an occlusion in 1 of the vessels of his leg He states he was prescribed medication but he has not been on it in a long time Lower extremity ultrasound - negative for DVT FEN start clears get speech therapy to do swallowing evaluation Electrolytes: Monitor and replete as needed NS at 70 cc/hour Holding pharmacologic anticoagulation for possible GI bleed and possible EGD d/w with family and patient- wants to speak to GI first regarding EGD - whether to have it done here or go back to [place] if patient decides to have it done in [place]- we will send records with him I d/w family that he is stable to travel back with family and have further work up done in [place] o
--- NOTE | 2018-09-06 15:40 | ECG ---
Date Performed: 09/05/2018 Time Performed: 19:03:08 PTAGE: 72 years EKG: SINUS TACHYCARDIA RIGHT ATRIAL ENLARGEMENT LEFT ATRIAL ENLARGEMENT ABNORMAL ECG NO PREVIOUS TRACING DOCTOR: Eliazar Benitez Interpretating Date/Time 09/06/2018 15:38:10
[2018-09-06] MEDS: Tiotropium Bromide 18 MCG/ACT Inhaler INH SCH (17:15)
[2018-09-07 08:29] LABS: Baso # (Auto) 0.1 th/mm3 (0.0-0.2); Eos # (Auto) 0.2 th/mm3 (0.0-0.4); Eos % (Auto) 3.6 % (0.0-4.0); Hematocrit 29.9 % (39.0-51.0); Lymph # (Auto) 1.9 th/mm3 (1.0-4.8); Lymph % (Auto) 27.8 % (9.0-44.0); Mean Corpuscular HGB Conc 33.6 % (32.0-36.0); Mean Corpuscular Hemoglobin 30.2 pg (27.0-34.0); Mean Corpuscular Volume 89.8 fL (80.0-100.0); Mean Platelet Volume 8.5 fL (7.0-11.0); Mono # (Auto) 0.5 th/mm3 (0.0-0.9); Mono % (Auto) 7.1 % (0.0-8.0); Neut # (Auto) 4.2 th/mm3 (1.8-7.7); Neut % (Auto) 60.5 % (16.0-70.0); Platelet Count 326 th/mm3 (150-450); Red Blood Count 3.32 mil/mm3 (4.50-5.90); Red Cell Distribution Width 14.6 % (11.6-17.2); White Blood Count 6.9 th/mm3 (4.0-11.0)
[2018-09-07 08:58] LABS: Anion Gap 8 meq/L (5-15); Blood Urea Nitrogen 14 mg/dL (7-18); Calcium 8.1 mg/dL (8.5-10.1); Carbon Dioxide 22.9 meq/L (21.0-32.0); Chloride 112 meq/L (98-107); Glomerular Filtration Rate Greater Than 89 mL/min (>89); Glucose,Random 80 mg/dL (74-106); Potassium 3.3 meq/L (3.5-5.1); Sodium 143 meq/L (136-145)
[2018-09-07] MEDS: Senna/Docusate Sodium 8.6/50 MG Tablet PO SCH ×2 (09:31→20:41)
[2018-09-07] MEDS: Budesonide-Formoterol 80/4.5 MCG 6.9 GM Inhaler INH SCH ×2 (09:32→20:42)
[2018-09-07] MEDS: Pantoprazole Inj 40 MG Vial IV.PUSH SCH ×2 (09:32→20:41)
[2018-09-07] MEDS: Tiotropium Bromide 18 MCG/ACT Inhaler INH SCH (09:32)
[2018-09-07] MEDS: Sod Chloride 0.9% Inj 1,000 ML IV.CONT SCH (09:32)
--- NOTE | 2018-09-07 11:33 | P.PNIM ---
Physical Exam Vital signs: Last Vital Signs Temp 98.4 F 09/07/18 04:00 Pulse 72 09/07/18 08:00 Resp 16 09/07/18 08:00 BP 111/59 L 09/07/18 08:00 Pulse Ox 97 09/07/18 08:00 Intake & Output 09/05/18 09/06/18 09/07/18 09/08/18 06:59 06:59 06:59 06:59 Intake Total 2150 / 2150 1540 / 1540 1000 / 1000 Output Total 550 / 550 Balance 2150 / 2150 990 / 990 1000 / 1000 Weight 43.091 kg 43.5 kg Narrative: Gen.: Cachectic appearing male in no acute distress, Cardiovascular: Regular rate and rhythm. Respiratory: Lungs clear to auscultation bilaterally. No wheezes or rhonchi. Abdomen: Soft, nontender, nondistended. Normoactive sounds Musculoskeletal: No gross deformities. No edema. Neuro: Alert and oriented x3 and moves bilateral upper and lower extremities x4 Results Labs CBC & Chem 7: 09/07/18 07:51 09/07/18 07:51 Labs: Microbiology 09/05/18 19:36 Blood - Peripheral Aerobic Blood Culture - Preliminary No growth in 2 days 09/05/18 19:36 Blood - Peripheral Anaerobic Blood Culture - Preliminary No growth in 2 days 09/05/18 19:32 Blood - Peripheral Aerobic Blood Culture - Preliminary No growth in 2 days 09/05/18 19:32 Blood - Peripheral Anaerobic Blood Culture - Preliminary No growth in 2 days Assessment and Plan Plan 72 years old visiting from [place] presents to the emergency room with 2-day history of nausea vomiting anorexia admitted for further evaluation History of oral/tongue cancer s/p radiation treatment Nausea/vomiting/weight loss/anorexia/? Esophageal neoplasm r/o stricture Dysphagia By history - difficulty eating with solids- just taking clears at home for years Patient Hemoccult positive in the ED Nausea/vomiting resolved-had some applesauce this morning and tolerated. CT of the abdomen/pelvis significant for extensive wall thickening of the distal esophagus with small paraesophageal lymph nodes. Neoplastic etiology is suspected and endoscopic/biopsy is recommended. Await GI consultation for evaluation for EGD, patient and family would like to pursue IV Protonix start clear liquids with ensure clear supplements. Consult dietitian Speech therapist has been consulted and performed a swallow evaluation and recommended continue thin liquids until GI evaluation. Protein calorie malnutrition secondary to poor p.o. intake and history of dysphasia -dietitian consultation and as supplements. 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 Patient reports a history of lung cancer in 2004 however states he felt it was a misdiagnosis and did not have it treated Patient will need oncologic workup as an outpatient-reinforced with family today-he will follow with primary care physician in [place] for referral to oncology and pulmonology Acute kidney injury- secondary to poor po and dehydration- Improved -start clear liquid diet continue to encourage p.o. intake Presenting mild metabolic acidosis due to likely dehydration and poor p.o. intake with related acute kidney injurythis is improved with IV fluid hydration. Hypokalemiareplete Acute anemiadrop in hemoglobin rule out underlying GI bleed, Hemoccult stools, weight GI evaluation and monitor hemoglobin. Continue PPI IV History of Peripheral vascular disease Patient reports he is followed as an outpatient for an occlusion in 1 of the vessels of his leg He states he was prescribed medication but he has not been on it in a long time Lower extremity ultrasound - negative for DVT DVT prophylaxis Holding pharmacologic anticoagulation for possible GI bleed and possible EGD, SCDs Discussed Condition With: Patient and family at bedside Progress Note: Quality VTE Deep Vein Thrombosis/Pulmonary Embolism Present on Admission: No
[2018-09-07] MEDS ORDERED: Potassium Bicarbonate 25 MEQ Effervescent Tablet PO ONE (13:00)
--- NOTE | 2018-09-07 13:49 | P.CONGI ---
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 The patient reports dark emesis. The patient is visiting from [place]. He denies abd pain, melena or hematochezia. Abdomen/ Pelvis CT 09/05/18---> Nodule in the right lower lobe measuring 1.8 cm. Extensive wall thickening of the distal esophagus with small paraesophageal lymph nodes. Neoplastic etiology is suspected and endoscopy/biopsy recommended.Nonspecific subcentimeter hepatic low-density, Nonspecific rectal wall thickening. Gallbladder distention urinary bladder. US was negative. pt states he has been thin since the mouth cancer. hgb today is 10.0, no bleeding or vomiting since admission. <Bunny Hidalgo - Last Filed: 09/07/18 13:36> Review of Systems All other systems reviewed negative except as stated in HPI <Bunny Hidalgo - Last Filed: 09/07/18 13:36> PMFSH - History History Provided By: Patient, Family Member - Medical History Medical History: Medical History (Last Reviewed 09/06/18 @ 09:14 by Fermin Coulter) COPD (chronic obstructive pulmonary disease) History of lung cancer History of mouth cancer Peripheral vascular disease - Surgical History Surgical History: Surgical History (Last Reviewed 09/06/18 @ 09:14 by Fermin Coulter) No history of previous surgery - Family History Family History: Family History (Last Updated 09/06/18 @ 03:26 by Alexus Sifuentes MD) Other Coronary artery disease - Tobacco History Second Hand Smoke Exposure: No Smoking Status: Never smoker - Alcohol History How Often Do You Have a Drink Containing Alcohol: Never - Substance Use History Substance History: No History of Abuse - Travel History Recent Travel in the [place] Within the Last 8 Weeks: Yes Recent Travel Out of the Country Within the Last 8 Weeks: No - Immunization History Tetanus Immunization: Unsure Hx Influenza Vaccine This Season: No <Bunny Hidalgo - Last Filed: 09/07/18 13:36> - Medical History Medical History: Medical History (Last Reviewed 09/06/18 @ 09:14 by Fermin Coulter) COPD (chronic obstructive pulmonary disease) History of lung cancer History of mouth cancer Peripheral vascular disease - Surgical History Surgical History: Surgical History (Last Reviewed 09/06/18 @ 09:14 by Fermin Coulter) No history of previous surgery - Family History Family History: Family History (Last Updated 09/06/18 @ 03:26 by Alexus Sifuentes MD) Other Coronary artery disease <Daisy Bowen - Last Filed: 09/07/18 15:50> Medications and Allergies Active Medications: Active Medications Acetaminophen (Tylenol) 650 mg PO Q4H PRN PRN Reason: Temp > 100.4 Al Hydroxide/Mg Hydroxide (Milk Of Magnesia Liq) 30 ml PO Q12H PRN PRN Reason: Mild Constipation Albuterol (Duoneb Neb (Prn)) 1 ampul NEB Q4HR NEB PRN PRN Reason: SOB/Wheezing Bisacodyl (Dulcolax Supp) 10 mg RECTAL DAILY PRN PRN Reason: SEVERE CONSITIPATION Budesonide/Formoterol Fumarate (Symbicort 80/4.5 Mcg Inh) 2 puff INH Q12H [facility] Last Admin: 09/07/18 09:32 Dose: 2 puff Sodium Chloride (Ns Inj) 1,000 mls @ 0 mls/hr IV.SIG .Q0M [facility] Last Infusion: 09/05/18 21:02 Dose: Infused Sodium Chloride (Ns Inj) 800 mls @ 0 mls/hr IV.SIG .Q0M [facility] Last Infusion: 09/05/18 21:02 Dose: Infused Sodium Chloride (Ns Inj) 1,000 mls @ 70 mls/hr IV.CONT .[id number] [facility] Last Admin: 09/07/18 09:32 Dose: 70 mls/hr Lactulose (Lactulose Liq) 30 ml PO DAILY PRN PRN Reason: SEVERE CONSITIPATION Ondansetron HCl (Zofran Inj) 4 mg IV.PUSH Q6H PRN PRN Reason: NAUSEA OR VOMITING Pantoprazole Sodium (Protonix Inj) 40 mg IV.PUSH Q12H [facility] Last Admin: 09/07/18 09:32 Dose: 40 mg Senna/Docusate Sodium (Neeta-Colace) 1 tab PO BID [facility] Last Admin: 09/07/18 09:31 Dose: Not Given Sennosides (Senokot) 17.2 mg PO Q12H PRN PRN Reason: Moderate Constipation Tiotropium [place] (Spiriva 18 Mcg Inh) 18 mcg INH DAILY [facility] Last Admin: 09/07/18 09:32 Dose: 18 mcg <Bunny Hidalgo - Last Filed: 09/07/18 13:36> Active Medications: Active Medications Acetaminophen (Tylenol) 650 mg PO Q4H PRN PRN Reason: Temp > 100.4 Al Hydroxide/Mg Hydroxide (Milk Of Magnesia Liq) 30 ml PO Q12H PRN PRN Reason: Mild Constipation Albuterol (Duoneb Neb (Prn)) 1 ampul NEB Q4HR NEB PRN PRN Reason: SOB/Wheezing Bisacodyl (Dulcolax Supp) 10 mg RECTAL DAILY PRN PRN Reason: SEVERE CONSITIPATION Budesonide/Formoterol Fumarate (Symbicort 80/4.5 Mcg Inh) 2 puff INH Q12H [facility] Last Admin: 09/07/18 09:32 Dose: 2 puff Sodium Chloride (Ns Inj) 1,000 mls @ 0 mls/hr IV.SIG .Q0M [facility] Last Infusion: 09/05/18 21:02 Dose: Infused Sodium Chloride (Ns Inj) 800 mls @ 0 mls/hr IV.SIG .Q0M [facility] Last Infusion: 09/05/18 21:02 Dose: Infused Sodium Chloride (Ns Inj) 1,000 mls @ 70 mls/hr IV.CONT .[id number] [facility] Last Admin: 09/07/18 09:32 Dose: 70 mls/hr Lactulose (Lactulose Liq) 30 ml PO DAILY PRN PRN Reason: SEVERE CONSITIPATION Ondansetron HCl (Zofran Inj) 4 mg IV.PUSH Q6H PRN PRN Reason: NAUSEA OR VOMITING Pantoprazole Sodium (Protonix Inj) 40 mg IV.PUSH Q12H [facility] Last Admin: 09/07/18 09:32 Dose: 40 mg Senna/Docusate Sodium (Neeta-Colace) 1 tab PO BID [facility] Last Admin: 09/07/18 09:31 Dose: Not Given Sennosides (Senokot) 17.2 mg PO Q12H PRN PRN Reason: Moderate Constipation Tiotropium [place] (Spiriva 18 Mcg Inh) 18 mcg INH DAILY [facility] Last Admin: 09/07/18 09:32 Dose: 18 mcg <AndrésDaisy Sebastián - Last Filed: 09/07/18 15:50> Allergies Allergy/AdvReac Type Severity Reaction Status Date / Time No Known Allergies Allergy Verified 09/05/18 18:59 Home Medications Medication Instructions Recorded Confirmed Type budesonide-formoterol [Symbicort] 2 puff INHALATION Q12H 09/05/18 09/05/18 History Exam Vital signs: Vital Signs 09/06/18 13:40 09/06/18 16:00 09/06/18 16:30 Temperature 96.6 F L 96.4 F L Pulse Rate 89 100 H 102 H Respiratory Rate 22 16 Blood Pressure 115/59 L 114/58 L Pulse Oximetry 100 98 09/07/18 00:00 09/07/18 04:00 09/07/18 08:00 Temperature 97.8 F 98.4 F Pulse Rate 88 71 72 Respiratory Rate 16 16 16 Blood Pressure 96/52 L 100/54 L 111/59 L Pulse Oximetry 97 95 97 09/07/18 12:00 Temperature 98.8 F Pulse Rate 71 Respiratory Rate 16 Blood Pressure 110/56 L Pulse Oximetry 98 Intake & Output 09/06/18 09/07/18 09/07/18 18:59 06:59 18:59 Intake Total 1540 / 1540 1000 / 1000 Output Total 550 / 550 Balance 990 / 990 1000 / 1000 Weight 43.091 kg 43.5 kg Intake: IV 1000 / 1000 1000 / 1000 NS Inj 1,000 ML @ 70 mls/hr IV. 1000 / 1000 1000 / 1000 CONT .[id number] [facility] Rx#:[id number] Oral 540 / 540 Output: Urine 550 / 550 Other: # Voids 3 Date of Last Bowel Movement 09/02/18 09/04/18 Weight On Admission 43.091 kg - Constitutional no acute distress - Routine HEENT Exam Head: Present: normocephalic - Routine Respiratory Exam Present: CTA bilaterally - Routine Cardiovascular Exam Present: RRR - Routine Abdominal Exam Present: soft, normoactive bowel sounds. Absent: tenderness, distended - Routine Skin Exam Present: intact, dry - Routine Neurological Exam Present: alert, oriented X3 <Bunny Hidalgo - Last Filed: 09/07/18 13:36> Vital signs: Vital Signs 09/06/18 16:00 09/06/18 16:30 09/07/18 00:00 Temperature 96.4 F L 97.8 F Pulse Rate 100 H 102 H 88 Respiratory Rate 16 16 Blood Pressure 114/58 L 96/52 L Pulse Oximetry 98 97 09/07/18 04:00 09/07/18 08:00 09/07/18 12:00 Temperature 98.4 F 98.8 F Pulse Rate 71 72 71 Respiratory Rate 16 16 16 Blood Pressure 100/54 L 111/59 L 110/56 L Pulse Oximetry 95 97 98 Intake & Output 09/06/18 09/07/18 09/07/18 18:59 06:59 18:59 Intake Total 1540 / 1540 1000 / 1000 Output Total 550 / 550 Balance 990 / 990 1000 / 1000 Weight 43.091 kg 43.5 kg Intake: IV 1000 / 1000 1000 / 1000 NS Inj 1,000 ML @ 70 mls/hr IV. 1000 / 1000 1000 / 1000 CONT .[id number] [facility] Rx#:[id number] Oral 540 / 540 Output: Urine 550 / 550 Other: # Voids 3 Date of Last Bowel Movement 09/02/18 09/04/18 09/04/18 Weight On Admission 43.091 kg <Daisy Bowen - Last Filed: 09/07/18 15:50> Results - Labs CBC & Chem 7: 09/07/18 07:51 09/07/18 07:51 Labs: Laboratory Results - last 24 hr 09/07/18 09/07/18 07:51 07:51 WBC 6.9 RBC 3.32 L Hgb 10.0 L D Hct 29.9 L MCV 89.8 MCH 30.2 MCHC 33.6 RDW 14.6 Plt Count 326 MPV 8.5 Neut % (Auto) 60.5 Lymph % (Auto) 27.8 [place] % (Auto) 7.1 Eos % (Auto) 3.6 Baso % (Auto) 1.0 Neut # (Auto) 4.2 Lymph # (Auto) 1.9 [place] # (Auto) 0.5 Eos # (Auto) 0.2 Baso # (Auto) 0.1 WBC Differential . Differential Comment Auto diff final Sodium 143 Potassium 3.3 L Chloride 112 H Carbon Dioxide 22.9 Anion Gap 8 BUN 14 Creatinine 0.78 Estimated GFR Greater than 89 Random Glucose 80 Calcium 8.1 L - Imaging Abdomen/Pelvis CT 09/05/18 19:19 CONCLUSION: 1. Nodule in the right lower lobe measuring 1.8 cm. 2. Extensive wall thickening of the distal esophagus with small paraesophageal lymph nodes. Neoplastic etiology is suspected and endoscopy/biopsy recommended. 3. Nonspecific subcentimeter hepatic low-density, 4. Nonspecific rectal wall thickening. 5. Gallbladder distention urinary bladder. Chest X-Ray 09/05/18 19:19 CONCLUSION: Hyperinflation without infiltrate. Chest CTA 09/05/18 19:46 CONCLUSION: 1. Moderate emphysematous changes with 2 lung nodules, largest right lung base at 2.1 cm undoubtably carcinoma. Smaller nodule upper lobe is nonspecific. 2. No mediastinal adenopathy 3. No central pulmonary emboli. Gallbladder Ultrasound 09/05/18 22:16 CONCLUSION: 1. Unremarkable right upper quadrant ultrasound. Venous Doppler Study 09/06/18 00:00 CONCLUSION: The study is negative for bilateral lower extremity deep venous thrombosis. <Bunny Hidalgo - Last Filed: 09/07/18 13:36> - Labs CBC & Chem 7: 09/07/18 07:51 09/07/18 07:51 Labs: Laboratory Results - last 24 hr 09/07/18 09/07/18 07:51 07:51 WBC 6.9 RBC 3.32 L Hgb 10.0 L D Hct 29.9 L MCV 89.8 MCH 30.2 MCHC 33.6 RDW 14.6 Plt Count 326 MPV 8.5 Neut % (Auto) 60.5 Lymph % (Auto) 27.8 [place] % (Auto) 7.1 Eos % (Auto) 3.6 Baso % (Auto) 1.0 Neut # (Auto) 4.2 Lymph # (Auto) 1.9 [place] # (Auto) 0.5 Eos # (Auto) 0.2 Baso # (Auto) 0.1 WBC Differential . Differential Comment Auto diff final Sodium 143 Potassium 3.3 L Chloride 112 H Carbon Dioxide 22.9 Anion Gap 8 BUN 14 Creatinine 0.78 Estimated GFR Greater than 89 Random Glucose 80 Calcium 8.1 L <Daisy Bowen - Last Filed: 09/07/18 15:50> Assessment and Plan - Plan - nausea/vomiting, anorexia, and fatigue for past 2 days. The patient reports dark emesis. The patient is visiting from [place]. He denies abd pain, melena or hematochezia. Abdomen/Pelvis CT 09/05/18---> Nodule in the right lower lobe measuring 1.8 cm. Extensive wall thickening of the distal esophagus with small paraesophageal lymph nodes. Neoplastic etiology is suspected and endoscopy/ biopsy recommended.Nonspecific subcentimeter hepatic low-density, Nonspecific rectal wall thickening. Gallbladder distention urinary bladder. US was negative. pt states he has been thin since the mouth cancer. 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 ppi - monitor labs - Transfuse as needed - Supportive care - Pt seen and examined by Dr. Bowen and myself and this note is written on his behalf. <Bunny Hidalgo - Last Filed: 09/07/18 13:36> - Attending Attestation Seen and examined, plan as above. Will proceed with EGD in AM. Thank you for the consult. <Daisy Bowen - Last Filed: 09/07/18 15:50>
[2018-09-08] MEDS ORDERED: Metoprolol Tartrate 25 MG Tablet PO ONE (01:33)
[2018-09-08] MEDS ORDERED: Chlorhexidine Gluconate 2% 1 Pack (2 Cloths) TOPICAL ONE (01:33)
[2018-09-08] MEDS ORDERED: Sodium Chlor 0.9% Inj 500 ML IV.SIG SCH (02:00)
[2018-09-08 04:49] VITALS: PULSE 77
[2018-09-08] MEDS: Sod Chloride 0.9% Inj 1,000 ML IV.CONT SCH (06:58)
[2018-09-08 07:16] LABS: Baso # (Auto) 0.1 th/mm3 (0.0-0.2); Baso % (Auto) 0.9 % (0.0-2.0); Eos # (Auto) 0.4 th/mm3 (0.0-0.4); Eos % (Auto) 6.1 % (0.0-4.0); Hemoglobin 11.2 gm/dL (13.0-17.0); Lymph # (Auto) 1.8 th/mm3 (1.0-4.8); Lymph % (Auto) 29.3 % (9.0-44.0); Mean Corpuscular HGB Conc 33.8 % (32.0-36.0); Mean Corpuscular Volume 88.8 fL (80.0-100.0); Mean Platelet Volume 8.7 fL (7.0-11.0); Mono # (Auto) 0.6 th/mm3 (0.0-0.9); Mono % (Auto) 9.5 % (0.0-8.0); Neut # (Auto) 3.4 th/mm3 (1.8-7.7); Neut % (Auto) 54.2 % (16.0-70.0); Platelet Count 302 th/mm3 (150-450); Red Blood Count 3.71 mil/mm3 (4.50-5.90); Red Cell Distribution Width 14.7 % (11.6-17.2); White Blood Count 6.3 th/mm3 (4.0-11.0)
[2018-09-08 07:51] LABS: Anion Gap 9 meq/L (5-15); Blood Urea Nitrogen 5 mg/dL (7-18); Calcium 7.8 mg/dL (8.5-10.1); Carbon Dioxide 25.5 meq/L (21.0-32.0); Chloride 107 meq/L (98-107); Glomerular Filtration Rate Greater Than 89 mL/min (>89); Glucose,Random 93 mg/dL (74-106); Sodium 141 meq/L (136-145)
[2018-09-08] MEDS: Senna/Docusate Sodium 8.6/50 MG Tablet PO SCH (08:41)
[2018-09-08] MEDS: Pantoprazole Inj 40 MG Vial IV.PUSH SCH (08:42)
[2018-09-08] MEDS: Tiotropium Bromide 18 MCG/ACT Inhaler INH SCH (08:43)
[2018-09-08] MEDS: Budesonide-Formoterol 80/4.5 MCG 6.9 GM Inhaler INH SCH (08:43)
[2018-09-08] MEDS ORDERED: Potassium Chloride 25 MEQ Effervescent Tablet PO ONE ×2 (09:00→14:30)
[2018-09-08] MEDS ORDERED: Potassium Chlor 20 mEq Premix 20 MEQ/100 ML PIGGYBACK IV.SIG ONE (09:00)
[2018-09-08 09:26] VITALS: TEMP 97.6
--- NOTE | 2018-09-08 09:42 | P.DS ---
DS: Providers Date of admission: 09/05/18 23:36 Primary care physician: No Primary Care Physician Consults: 09/06/18 03:13 Consult to Gastroenterology Routine Consulting Provider: Daisy Bowen Reason for Consultation: Hemeoccult + in ED, wall thickening in the distal esophagus concerning for neoplastic process Notified:: Office Spoke with:: boubacar Date Notified:: 09/06/18 Time Notified:: 09:43 Ordering Provider: HOMER Brief History from admission: 72-year-old male with a past medical history significant for "mouth cancer", COPD and peripheral vascular disease presents to the emergency department for evaluation of nausea/vomiting and anorexia times 2 days. The patient reports he did have dark emesis but he also drank coffee prior to throwing up so he is unsure if there was blood in his M just was throwing up his coffee. The patient is visiting from [place]. 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 He states at that time he lost a significant amount of weight but his weight has been stable since 2004. He also reports being diagnosed with lung cancer in 2004 however states that he did not seek treatment for this because he felt it was a misdiagnosis. 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 He does not have a primary care physician. He states his last EGD was done in 2011 and he believes that it was normal. He was Hemoccult positive in the emergency department. CT abdomen/ pelvis concerning for esophageal wall thickening with suspected neoplastic etiology. CT of the chest showed 2 lung nodules with the largest at the right lung base "undoubtably carcinoma." The patient denies any chest pain or shortness of breath. No diarrhea. No fever/chills. No focal neurologic deficits. DS: Diagnosis Discharge Diagnosis (1) Dysphagia: Status: Acute Diagnosis: Principal (2) Lung nodule < 6cm on CT: Status: Acute Diagnosis: Secondary (3) CARISA (acute kidney injury): Status: Acute Diagnosis: Secondary (4) Anemia: Status: Acute Diagnosis: Secondary (5) Protein-calorie malnutrition, mild: Status: Acute Diagnosis: Secondary (6) Esophageal ulcer: Status: Acute Diagnosis: Secondary (7) Gastroesophageal junction ulcer: Status: Acute Diagnosis: Secondary DS: Summary 72-year-old white male visiting from [place] presented to the emergency room with 2-day history of nausea vomiting anorexia admitted further for evaluation for dysphasia by history. He also has a history of oral tongue cancer status post radiation treatment. He was found to be Hemoccult positive in the emergency room with acute anemia which stabilized during the hospitalization without needing for transfusion. GI services consulted for EGD procedure Of note, a CT chest and abdomen pelvis was performed which revealed patient had a 2 lung nodule, largest in the right lung base at 2.1 cm suspicious for malignancy. He and family was counseled on following closely with a primary care physician when he returns back to [place] with referral to oncology and pulmonology for workup this lung nodule. His CT abdomen pelvis was significant for extensive wall thickening of the distal esophagus with small para esophageal lymph nodes. Neoplastic etiology is suspected and further evaluation with EGD endoscopy biopsy is recommended. Patient was placed on PPI. Upper endoscopy performed revealed esophageal ulcers and also ulcers in the gastroesophageal junction. Biopsy of this region was obtained. His acute kidney injury due to dehydration improved with IV fluid hydration and better oral intake. Dietary service was consulted for his mild protein calorie malnutrition with his low BMI of 15. Patient had hypokalemia which was repleted. He had nonsustained episodes of sinus tachycardia which was asymptomatic may be due to electrolyte abnormality. He was counseled to follow-up with his primary care physician for further evaluation and workup At this time, patient has gained maximum benefit from hospitalization and read to be discharged to home with follow-up with his primary care physician. Status at Discharge Functional status at discharge: independent ambulation Overall status at discharge: patient is back to baseline Time Spent with Patient Total time spent providing and/or coordinating discharge services: Less than 30 minutes Quality: VTE Deep Vein Thrombosis/Pulmonary Embolism Present on Admission: No Exam Narrative Exam Narrative: GENERAL: This is a thin, cachectic patient, in no apparent distress. CARDIOVASCULAR: Regular rate and rhythm RESPIRATORY: Clear to auscultation. Breath sounds equal bilaterally. No wheezes , rales, or rhonchi. GASTROINTESTINAL: Abdomen soft, non-tender, nondistended. Normal active bowel sounds MUSCULOSKELETAL: Extremities without clubbing, cyanosis, or edema. NEURO: Alert & Oriented x4 to person, place, time, situation. Moves all ext x4 Results Procedures completed during hospitalization: 09/08 upper endoscopy. Labs on day of discharge: Labs from last 24 hours 09/08/18 09/08/18 06:44 06:44 WBC 6.3 RBC 3.71 L Hgb 11.2 L Hct 33.0 L MCV 88.8 MCH 30.0 MCHC 33.8 RDW 14.7 Plt Count 302 MPV 8.7 Neut % (Auto) 54.2 Lymph % (Auto) 29.3 [place] % (Auto) 9.5 H Eos % (Auto) 6.1 H Baso % (Auto) 0.9 Neut # (Auto) 3.4 Lymph # (Auto) 1.8 [place] # (Auto) 0.6 Eos # (Auto) 0.4 Baso # (Auto) 0.1 WBC Differential . Differential Comment Auto diff final Sodium 141 Potassium 3.0 L Chloride 107 Carbon Dioxide 25.5 Anion Gap 9 BUN 5 L Creatinine 0.65 Estimated GFR Greater than 89 Random Glucose 93 Calcium 7.8 L Preliminary micro results at discharge 09/05/18 19:36 Aerobic Blood Culture - Preliminary Blood - Peripheral No growth in 2 days Anaerobic Blood Culture - Preliminary No growth in 2 days 09/05/18 19:32 Aerobic Blood Culture - Preliminary Blood - Peripheral No growth in 2 days Anaerobic Blood Culture - Preliminary No growth in 2 days Impressions ITS Impressions Abdomen/Pelvis CT 09/05/18 19:19 CONCLUSION: 1. Nodule in the right lower lobe measuring 1.8 cm. 2. Extensive wall thickening of the distal esophagus with small paraesophageal lymph nodes. Neoplastic etiology is suspected and endoscopy/biopsy recommended. 3. Nonspecific subcentimeter hepatic low-density, 4. Nonspecific rectal wall thickening. 5. Gallbladder distention urinary bladder. Chest X-Ray 09/05/18 19:19 CONCLUSION: Hyperinflation without infiltrate. Chest CTA 09/05/18 19:46 CONCLUSION: 1. Moderate emphysematous changes with 2 lung nodules, largest right lung base at 2.1 cm undoubtably carcinoma. Smaller nodule upper lobe is nonspecific. 2. No mediastinal adenopathy 3. No central pulmonary emboli. Gallbladder Ultrasound 09/05/18 22:16 CONCLUSION: 1. Unremarkable right upper quadrant ultrasound. Venous Doppler Study 09/06/18 00:00 CONCLUSION: The study is negative for bilateral lower extremity deep venous thrombosis. Discharge Plan Discharge Disposition Patient Disposition: Discharge Home Discharge Condition Condition: Good Discharge Order Discharge Orders: Discharge Order (Routine); Ordered 09/08/18 Ordered By: Nina La Discharge Details Anticipated Discharge Date: 09/08/18 Physicians Team Primary Care Provider: Primary Brittaney Hampton Attending Provider: Nina La Other Providers: Daisy Bowen Rxs /Orders / Referrals /Forms Prescriptions: New pantoprazole [Protonix] 40 mg tablet,delayed release (DR/EC) 40 mg PO DAILY Qty: 30 RF: 0 Continue budesonide-formoterol [Symbicort] 80-4.5 mcg/actuation Hfa Aerosol Inhaler 2 puff INHALATION Q12H RF: 0 Referrals: Primary Care Brittaney Acosta [Primary Care Provider] - See Instructions ( Please call the physician's office to book the appointment to be seen within 1 week when return to [place]..) Discharge Instructions Additional Instructions: Follow-up with primary care physician with referral to oncology and pulmonology for right lung 2.1 cm nodule suspicious for malignancy. Status ED Status: Left Department
--- NOTE | 2018-09-08 09:53 | P.PNIM ---
Subjective Interval history: Patient dates that he is able to swallow some thin liquids. He is visiting from [place] and wants to go back home after the EGD. His son is coming to pick him up tomorrow. He has no abdominal pain. He has not had any further nausea or vomiting. Physical Exam Vital signs: Last Vital Signs Temp 97.6 F 09/08/18 08:00 Pulse 77 09/08/18 08:00 Resp 20 09/08/18 08:00 BP 137/65 09/08/18 08:00 Pulse Ox 94 L 09/08/18 08:00 Intake & Output 09/06/18 09/07/18 09/08/18 09/09/18 06:59 06:59 06:59 06:59 Intake Total 2150 / 2150 1540 / 1540 4120 / 4120 Output Total 550 / 550 1350 / 1350 Balance 2150 / 2150 990 / 990 2770 / 2770 Weight 43.091 kg 43.5 kg 43.1 kg Narrative: Gen.: Cachectic appearing male in no acute distress, Cardiovascular: Regular rate and rhythm. Respiratory: Lungs clear to auscultation bilaterally. No wheezes or rhonchi. Abdomen: Soft, nontender, nondistended. Normoactive sounds Musculoskeletal: No gross deformities. No edema. Neuro: Alert and oriented x3 and moves bilateral upper and lower extremities x4 Results Labs CBC & Chem 7: 09/08/18 06:44 09/08/18 06:44 Labs: Microbiology 09/05/18 19:36 Blood - Peripheral Aerobic Blood Culture - Preliminary No growth in 2 days 09/05/18 19:36 Blood - Peripheral Anaerobic Blood Culture - Preliminary No growth in 2 days 09/05/18 19:32 Blood - Peripheral Aerobic Blood Culture - Preliminary No growth in 2 days 09/05/18 19:32 Blood - Peripheral Anaerobic Blood Culture - Preliminary No growth in 2 days Assessment and Plan (1) Dysphagia: Code(s): R13.10 - Dysphagia, unspecified Status: Acute (2) Lung nodule < 6cm on CT: Code(s): R91.1 - Solitary pulmonary nodule Status: Acute (3) Protein-calorie malnutrition, mild: Code(s): E44.1 - Mild protein-calorie malnutrition Status: Acute (4) CARISA (acute kidney injury): Code(s): N17.9 - Acute kidney failure, unspecified Status: Acute (5) Anemia: Code(s): D64.9 - Anemia, unspecified Status: Acute Plan 72 years old visiting from [place] presents to the emergency room with 2-day history of nausea vomiting anorexia admitted for further evaluation History of oral/tongue cancer s/p radiation treatment Nausea/vomiting/weight loss/anorexia/? Esophageal neoplasm r/o stricture Dysphagia By history - difficulty eating with solids- just taking clears at home for years Patient Hemoccult positive in the ED with hemoglobin stable overnight. Nausea/vomiting resolved-had some applesauce this morning and tolerated. CT of the abdomen/pelvis significant for extensive wall thickening of the distal esophagus with small paraesophageal lymph nodes. Neoplastic etiology is suspected and endoscopic/biopsy is recommended. GI to perform a EGD, IV Protonix Tolerating clear liquids with ensure clear supplements. Consulted dietitian Speech therapist has been consulted and performed a swallow evaluation and recommended continue thin liquids until GI evaluation. Protein calorie malnutrition secondary to poor p.o. intake and history of dysphasia -dietitian consultation and continue Ensure supplements supplements. 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 Patient reports a history of lung cancer in 2004 however states he felt it was a misdiagnosis and did not have it treated Patient will need oncologic workup as an outpatient-reinforced again with family -he will follow with primary care physician in [place] for referral to oncology and pulmonology Acute kidney injury- secondary to poor po and dehydration- Improved -start clear liquid diet continue to encourage p.o. intake Presenting mild metabolic acidosis due to likely dehydration and poor p.o. intake with related acute kidney injurythis is improved with IV fluid hydration. Hypokalemiareplete Acute anemiarepeat hemoglobin today shows improvement. We will continue to monitor hemoglobin. For EGD today. History of Peripheral vascular disease Patient reports he is followed as an outpatient for an occlusion in 1 of the vessels of his leg He states he was prescribed medication but he has not been on it in a long time Lower extremity ultrasound - negative for DVT DVT prophylaxis Holding pharmacologic anticoagulation for possible GI bleed to complete EGD today., Bilateral SCDs. Disposition to discharge home when cleared by GI after EGD. Progress Note: Quality VTE Deep Vein Thrombosis/Pulmonary Embolism Present on Admission: No
--- NOTE | 2018-09-08 12:43 | GIPROC ---
[facility] [address] [facility] [place]. [facility], [address] EGD PROCEDURE REPORT EXAM DATE: 09/08/2018 PATIENT NAME: Todd Garcia MR #: [id number] BIRTHDATE: 1945 ATTENDING: Daisy Bowen MD ORDER #: [id number] LENS GRINDER AND POLISHER: Apirl Coates and Valentina Higginbotham STATUS: inpatient INDICATIONS: The patient is a 72 yr old male here for an EGD due to vomiting and nausea PROCEDURE PERFORMED: EGD w/ biopsy MEDICATIONS: Per Anesthesia and None. TOPICAL ANESTHETIC: none CONSENT: The patient understands the risks and benefits of the procedure and understands that these risks include, but are not limited to: sedation, allergic reaction, infection, perforation and/or bleeding. Alternative means of evaluation and treatment include, among others: physical exam, x-rays, and/or surgical intervention. The patient elects to proceed with this endoscopic procedure. medical equipment was checked for proper function. Hand hygiene and appropriate measures for infection prevention was taken. After the risks, benefits and alternatives of the procedure were thoroughly explained, Informed consent was verified, confirmed and timeout was successfully executed by the treatment team. The patient was anesthetized with topical anesthesia and the Pentax [id number] endoscope was introduced through the mouth and advanced to the second portion of the duodenum. Retroflexion was performed and was normal The gastroscope was then slowly withdrawn and removed. ESOPHAGUS: A 3 cm hiatal hernia was noted. Multiple large non-bleeding, irregular shaped, deep and clean-based ulcers were found in the distal esophagus and at the gastroesophageal junction. Biopsies were taken at edge of the ulcers and at the center of the ulcers. STOMACH: The mucosa of the stomach appeared normal. DUODENUM: The duodenal mucosa appeared normal. ADVERSE EVENTS: There were no complications. IMPRESSIONS: 1. 3 cm hiatal hernia 2. Multiple large ulcers were found in the distal esophagus and at the gastroesophageal junction; biopsies were taken 3. The mucosa of the stomach appeared normal 4. Normal duodenal mucosa 5. Retroflexion was performed and was normal RECOMMENDATIONS: 1. Await biopsy results. Biopsy results will not be ready for 7-10 days. If you don't hear from us in two weeks, call our office for biopsy results. 2. Continue PPI PATIENT CONDITION: stable DISPOSITION: Observation REPEAT EXAM: NONE Daisy Bowen MD eSigned: Daisy Bowen MD 09/08/2018 12:43 PM cc: PATIENT NAME: Todd Garcia MR#: [id number]
[2018-09-08 13:37] VITALS: BP 110/57; RESP 18; O2SAT 96
[2018-09-08] MEDS ORDERED: dilTIAZem 30 MG Tablet PO ONE (14:30)
== END 2018-09-08 18:00 | disposition home or self-care (01) ==
LOC: NEPC 18:11 → INTOOBSV 23:36 → NEDA 23:36 → NEDH 09-06 03:33 → H7ONC 09-06 09:40
PROVIDERS: ADMIT Family Medicine; ATTEND Family Medicine
PROC: PANENDO (2018-09-08 12:10)
DX: Z85.810 Personal history of malignant neoplasm of tongue; E87.2 Acidosis; R06.02 Shortness of breath; Z92.3 Personal history of irradiation; N17.9 Acute kidney failure, unspecified; D64.9 Anemia, unspecified; K64.4 Residual hemorrhoidal skin tags; R19.7 Diarrhea, unspecified; M54.5 Low back pain; E86.0 Dehydration; R11.2 Nausea with vomiting, unspecified; K22.10 Ulcer of esophagus without bleeding; I73.9 Peripheral vascular disease, unspecified; R64 Cachexia; K82.8 Other specified diseases of gallbladder; E44.1 Mild protein-calorie malnutrition; Z85.118 Personal history of other malignant neoplasm of bronchus and lung; K25.4 Chronic or unspecified gastric ulcer with hemorrhage; E87.6 Hypokalemia; K44.9 Diaphragmatic hernia without obstruction or gangrene; Z87.891 Personal history of nicotine dependence; R05 Cough; R91.8 Other nonspecific abnormal finding of lung field; J44.9 Chronic obstructive pulmonary disease, unspecified; Z79.51 Long term (current) use of inhaled steroids